=== PATIENT | female | born 1970 | race Caucasian/White ===

== ENCOUNTER → 2018-08-15 | Outpatient (CLI) | payer OTHER ==
--- NOTE | 2018-08-16 12:58 | RAD ---
DATE: 08/15/2018 EXAM: DIGITAL SCREEN BILAT W/CAD HISTORY: Routine screening COMPARISON: 10/03/2016 This study was interpreted with the benefit of Computerized Aided Detection (CAD). Breast Density: FATTY The breast parenchyma is primarily fatty replaced. Breast parenchyma level density A. FINDINGS: 2-D and 3-D tomosynthesis imaging was performed in CC and MLO projections. No new or enlarging breast densities are seen. Benign type calcifications are again noted. No suspicious microcalcifications have developed. IMPRESSION: Stable mammograms without evidence of malignancy. BI-RADS CATEGORY: 2 BENIGN FINDING(S) RECOMMENDED FOLLOW-UP: 12M 12 MONTH FOLLOW-UP PQRS compliance statement: Patient information was entered into a reminder system with a target due date for the next mammogram. Mammography is a sensitive method for finding small breast cancers, but it does not detect them all and is not a substitute for careful clinical examination. A negative mammogram does not negate a clinically suspicious finding and should not result in delay in biopsying a clinically suspicious abnormality. "Our facility is accredited by the [employer] Mammography Program."
== END | disposition home or self-care (01) ==
LOC: MAMMO 15:05
PROVIDERS: ATTEND Family Medicine
DX: Z12.31 Encounter for screening mammogram for malignant neoplasm of breast (principal)
CPT/HCPCS: 77067

== ENCOUNTER 2020-01-13 19:35 | Emergency (ER) | payer OTHER ==
[~2020-01-13] VITALS: Ht 154.9 cm; Wt 93.1 kg
--- NOTE | 2020-01-13 19:46 | EKG ---
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
[2020-01-13] MEDS ORDERED: LIDO:MAALOX 1:1 20 ML SINGLE DOSE. PO ONE (20:00)
--- NOTE | 2020-01-13 20:01 | PHYS DOC ---
Past History Past Medical History: Anxiety, Hypertension, Kidney Stones Past Surgical History: Tonsillectomy, Other Additional Past Surgical Histo: LITHOTRIPSY, HERNIA, BREAST REDUCTION, WISDOM TEETH Alcohol Use: None General Adult EDM: Chief Complaint: CHEST PAIN HPI: HPI: Patient is a 49-year-old female who presented to ER today for evaluation of epigastric abdominal pain chest pain that started about 45 minutes ago. Patient denies any radiation, no trouble breathing, no cough, no fever. Patient says sitting up makes the pain worse. Patient is on control medication she d enies smoking, no history of blood clot disorder, no history of diabetes or high cholesterol. Patient denies any family history of heart disease. Review of Systems: Review of Systems: Constitutional: Denies fever or chills Eyes: Denies change in visual acuity HENT: Denies nasal congestion or sore throat Respiratory: Denies cough or shortness of breath Cardiovascular: Positive for chest pain GI: Denies abdominal pain, nausea, vomiting, bloody stools or diarrhea : Denies dysuria Musculoskeletal: Denies back pain or joint pain Integument: Denies rash Neurologic: Denies headache, focal weakness or sensory changes Endocrine: Denies polyuria or polydipsia Lymphatic: Denies swollen glands Psychiatric: Denies depression or anxiety Heart Score: Risk Factors: Risk Factors: DM, Current or recent (<one month) smoker, HTN, HLP, family history of CAD, obesity. Risk Scores: Score 0 - 3: 2.5% MACE over next 6 weeks - Discharge Home Score 4 - 6: 20.3% MACE over next 6 weeks - Admit for Clinical Observation Score 7 - 10: 72.7% MACE over next 6 weeks - Early Invasive Strategies Allergies: Allergies: Allergies Coded Allergies Type Severity Reaction Last Updated Verified No Known Drug Allergies 01/13/20 No Physical Exam: PE: Constitutional: Well developed, well nourished, no acute distress, non-toxic appearance. HENT: Normocephalic, atraumatic, bilateral external ears normal, oropharynx moist, no oral exudates, nose normal. [] Eyes: PERRLA, EOMI, conjunctiva normal, no discharge. [] Neck: Normal range of motion, no tenderness, supple, no stridor. [] Cardiovascular:Heart rate regular rhythm, no murmur [] Lungs & Thorax: Bilateral breath sounds clear to auscultation [] Abdomen: Bowel sounds normal, soft, no tenderness, no masses, no pulsatile masses. [] Skin: Warm, dry, no erythema, no rash. [] Back: No tenderness, no CVA tenderness. [] Extremities: No tenderness, no cyanosis, no clubbing, ROM intact, no edema. [] Neurologic: Alert and oriented X 3, normal motor function, normal sensory function, no focal deficits noted. [] Psychologic: Affect normal, judgement normal, mood normal. Appears very anxious, hyperventilating. Current Patient Data: Vital Signs: Vital Signs Date Time Temp Pulse Resp B/P (MAP) Pulse Ox O2 Delivery O2 Flow Rate FiO2 01/13/20 19:35 98.7 95 30 143/65 (91) 100 Room Air EKG: EKG: EKG was done at 1940, heart rate of 93 bpm, sinus rhythm, no ST segment elevation. Radiology/Procedures: Radiology/Procedures: [][address] [address] IMAGING REPORT Signed PATIENT: OLGA MIXON ACCOUNT: [id number] : 1970 LOCATION: ER AGE: 49 SEX: F EXAM STATUS: REG ER ORD. PHYSICIAN: DANETTE VEGAS DO REASON: Chest pain PROCEDURE: PORTABLE CHEST 1V PORTABLE CHEST 1V 01/13/2020 7:56 PM INDICATION: Chest pain COMPARISON: None available TECHNIQUE: Portable frontal view of the chest is provided. FINDINGS: The cardiomediastinal silhouette is within normal limits. Lungs are clear. There are no significant pleural effusions. There is no pulmonary vascular congestion. No pneumothorax. No suspicious osseous abnormality. IMPRESSION: There is no acute cardiopulmonary process. Electronically signed by: Paola Peres MD (01/13/2020 8:16 PM) [facility] DICTATED AND SIGNED BY: PAOLA PERES MD DATE: 01/13/202015 CC: PCP,NO; DANETTE VEGAS DO ~ [address] [address] IMAGING REPORT Signed PATIENT: OLGA MIXON ACCOUNT: [id number] : 1970 LOCATION: ER AGE: 49 SEX: F EXAM STATUS: REG ER ORD. PHYSICIAN: DANETTE VEGAS DO REASON: RUQ, EPIGASTRIC PAIN PROCEDURE: ABDOMEN LTD Exam: Ultrasound abdomen limited Indication: Right upper quadrant, epigastric pain Technique: Real-time grayscale and color Doppler images of the right upper quadrant were obtained by the department mechanics supervisor. Comparisons: None FINDINGS: Liver demonstrates homogenous echotexture. Liver contour is normal. Hepatopedal flow in the oral vein. Gallstone noted within the gallbladder. Gallbladder is otherwise thin-walled without pericholecystic fluid or wall thickening. No sonographic Valencia sign. Pancreas is not well seen. Right kidney measures 9.4 cm in length. No hydronephrosis. Visualized portions of aorta and IVC are unremarkable. IMPRESSION: 1. Nonmobile gallstone at the gallbladder neck without pericholecystic inflammatory changes or other evidence for acute cholecystitis. If there is persistent concerns for acute cholecystitis HIDA scan would better evaluate. 2. Normal sonographic appearance of the liver. 3. No right-sided hydronephrosis. Electronically signed by: Armando Alcazar MD (01/13/2020 10:28 PM) [id number] DICTATED AND SIGNED BY: ARMANDO ALCAZAR MD DATE: 01/13/202227 CC: PCP,ADELSO; DANETTE VEGAS DO ~ Course & Med Decision Making: Course & Med Decision Making Pertinent Labs and Imaging studies reviewed. (See chart for details) Patient is a 49-year-old female who was evaluated in ER due to epigastric abdominal pain, her white count elevated, ultrasound her gallbladder shown she has a gallbladder stone stuck at the gallbladder neck, patient will need to be evaluated by GI and general surgery, these services are not available at this hospital, therefore patient needed to be transferred to [facility], accepted by Dr. Villarreal. John Disclaimer: John Disclaimer: This electronic medical record was generated, in whole or in part, using a voice recognition dictation system. Departure Departure: Impression: Primary Impression: Biliary colic Additional Impression: Leukocytosis Disposition: XFER SHT-TRM HOSP (transferred to [facility], accepted by Dr. Phil) Condition: STABLE Referrals: PCP,NO (PCP) Justification of Admission: Justification of Admission: Justification of Admission Dx: N/A DANETTE VEGAS DO Jan 13, 2020 20:01
[2020-01-13 20:08] LABS: BASO % 0 % (0-3); EOS # 0.2 x10^3/uL (0.0-0.7); EOS % 2 % (0-3); HEMATOCRIT 41.3 % (36.0-47.0); HEMOGLOBIN 13.7 g/dL (12.0-15.5); LYMPH % 40 % (24-48); MEAN CORPUSCULAR HEMOGLOBIN 31 pg (25-35); MEAN CORPUSCULAR HGB CONC 33 g/dL (31-37); MEAN CORPUSCULAR VOLUME 93 fL (79-100); MONO % 7 % (0-9); NEUT # 7.7 x10^3uL (1.8-7.7); NEUT % 51 % (31-73); PLATELET COUNT 389 x10^3/uL (140-400); RED BLOOD COUNT 4.43 x10^6/uL (3.50-5.40); RED CELL DISTRIBUTION WIDTH 13.2 % (11.5-14.5)
--- NOTE | 2020-01-13 20:19 | RAD ---
PORTABLE CHEST 1V 01/13/2020 7:56 PM INDICATION: Chest pain COMPARISON: None available TECHNIQUE: Portable frontal view of the chest is provided. FINDINGS: The cardiomediastinal silhouette is within normal limits. Lungs are clear. There are no significant pleural effusions. There is no pulmonary vascular congestion. No pneumothorax. No suspicious osseous abnormality. IMPRESSION: There is no acute cardiopulmonary process. Electronically signed by: Carlyn Marinelli MD (01/13/2020 8:16 PM) JEANNETTE
[2020-01-13 20:21] LABS: CALCIUM 9.2 mg/dL (8.5-10.1); CREATININE 1.1 mg/dL (0.6-1.0); GFR 53.2; POTASSIUM 3.1 mmol/L (3.5-5.1)
[2020-01-13 20:28] LABS: ALBUMIN 3.3 g/dL (3.4-5.0); ALBUMIN/GLOBULIN RATIO 0.8 (1.0-1.7); MAGNESIUM 1.9 mg/dL (1.8-2.4); TOTAL BILIRUBIN 0.2 mg/dL (0.2-1.0); TOTAL PROTEIN 7.6 g/dL (6.4-8.2)
[2020-01-13 21:14] LABS: BACTERIA,URINE 0 /HPF (0-FEW); BILIRUBIN,URINE NEG (NEG); CLARITY,URINE CLEAR; COLOR,URINE YELLOW; GLUCOSE,URINE NEG (NEG); NITRITE,URINE NEG (NEG); SQUAMOUS EPITHELIAL CELL,UR FEW /LPF; UROBILINOGEN,URINE 0.2 mg/dL (0.2 mg/dL); WBC,URINE OCC /HPF (0-4)
[2020-01-13] MEDS ORDERED: PIPERACILLIN/TAZOBACTAM 3.375 GM in IV NORMAL SALINE 50ML 50 ML IV ONE (22:30)
--- NOTE | 2020-01-13 22:31 | RAD ---
Exam: Ultrasound abdomen limited Indication: Right upper quadrant, epigastric pain Technique: Real-time grayscale and color Doppler images of the right upper quadrant were obtained by the department sound system installer. Comparisons: None FINDINGS: Liver demonstrates homogenous echotexture. Liver contour is normal. Hepatopedal flow in the oral vein. Gallstone noted within the gallbladder. Gallbladder is otherwise thin-walled without pericholecystic fluid or wall thickening. No sonographic Valencia sign. Pancreas is not well seen. Right kidney measures 9.4 cm in length. No hydronephrosis. Visualized portions of aorta and IVC are unremarkable. IMPRESSION: 1. Nonmobile gallstone at the gallbladder neck without pericholecystic inflammatory changes or other evidence for acute cholecystitis. If there is persistent concerns for acute cholecystitis HIDA scan would better evaluate. 2. Normal sonographic appearance of the liver. 3. No right-sided hydronephrosis. Electronically signed by: Armando Larson MD (01/13/2020 10:28 PM) [id number]
[2020-01-13] MEDS ORDERED: PIPERACILLIN/TAZOBACTAM 3.375 GM VIAL IV ONE (22:46)
[2020-01-13] MEDS ORDERED: IV NORMAL SALINE 50ML 50 ML ONE (22:46)
[2020-01-13 23:14] VITALS: BP 129/60
== END 2020-01-13 23:39 | disposition short-term general hospital (02) ==
LOC: ER 19:35
DX: K80.50 Calculus of bile duct without cholangitis or cholecystitis without obstruction (principal); D72.829 Elevated white blood cell count, unspecified; Z20.828 Contact with and (suspected) exposure to other viral communicable diseases; F41.9 Anxiety disorder, unspecified; I10 Essential (primary) hypertension; Z87.442 Personal history of urinary calculi
CPT/HCPCS: 36415; 71045; 76705; 80053; 81001; 83690; 83735; 83880; 84484; 85025; 85379; 85610; 85730; 93005; 96365; 99285; C9803; J2543; U0003